=== PATIENT | female | born 1945 | race Caucasian/White ===

== ENCOUNTER 2020-04-04 11:23 | Outpatient (CLI) | payer MEDICARE ==
--- NOTE | 2020-04-04 13:35 | BD ---
BONE DENSITOMETRY USING DEXA: Date: 04/04/2020 HISTORY: Postmenopausal screening for osteoporosis. FINDINGS: Lumbar Spine: BMD (g/cm2) L1 0.978 T-Score: -0.1 Z-Score: 2.0 L2 1.005 T-Score: -0.2 Z-Score: 2.2 L3 1.165 T-Score: 0.7 Z-Score: 3.3 L4 1.225 T-Score: 1.5 Z-Score: 4.1 L1-L4 1.105 T-Score: 0.5 Z-Score: 2.9 Femoral Neck: 0.739 T-Score: -1.0 Z-Score: 1.1 Total Femur: 0.868 T-Score: -0.6 Z-Score: 1.2 IMPRESSION: Normal bone mineral density. POS: AH
== END 2020-04-04 11:24 | disposition home or self-care (01) ==
LOC: BICMAMMO 11:23
PROVIDERS: ATTEND Internal Medicine
DX: Z13.820 Encounter for screening for osteoporosis (principal)
CPT/HCPCS: 77080

== ENCOUNTER 2020-12-19 21:51 | Emergency (ER) | payer MEDICARE ==
[2020-12-20] MEDS ORDERED: Rabies Vaccine Human 2.5 UNITS VIAL IM ONE (02:00)
== END 2020-12-20 03:27 | disposition home or self-care (01) ==
LOC: ERS 21:51
DX: S61.451A Open bite of right hand, initial encounter (principal); Z23 Encounter for immunization; I10 Essential (primary) hypertension; E78.5 Hyperlipidemia, unspecified; W55.01XA Bitten by cat, initial encounter
CPT/HCPCS: 90376; 90471; 90675; 96372

== ENCOUNTER → 2020-12-23 | Day surgery (SDC) | payer MEDICARE ==
[~2020-12-23] MED LIST: Rabies Vaccine Human 2.5 UNITS VIAL IM ONE
== END ==
LOC: ER/OP 13:07
DX: Z23 Encounter for immunization (principal); Z88.2 Allergy status to sulfonamides
CPT/HCPCS: 90675

== ENCOUNTER → 2020-12-27 | Emergency (ER) | payer MEDICARE | LOC: ER/OP 13:59 | DX: Z23 Encounter for immunization (principal) | CPT/HCPCS: 90471; 90675 ==

== ENCOUNTER → 2021-01-03 | Day surgery (SDC) | payer MEDICARE | LOC: ER/OP 09:45 | DX: Z23 Encounter for immunization (principal); Z88.1 Allergy status to other antibiotic agents; Z88.2 Allergy status to sulfonamides | CPT/HCPCS: 90471; 90675 ==

== ENCOUNTER → 2021-01-17 | Day surgery (SDC) | payer MEDICARE | LOC: ER/OP 15:30 | PROVIDERS: ATTEND Emergency Medicine | DX: Z23 Encounter for immunization (principal); Z88.1 Allergy status to other antibiotic agents; Z88.2 Allergy status to sulfonamides | CPT/HCPCS: 90471; 90675 ==

== ENCOUNTER 2022-02-06 10:29 | Outpatient (CLI) | payer OTHER | END 2022-02-06 10:30 | disposition home or self-care (01) | LOC: BICULT 10:29 | PROVIDERS: ATTEND Urology | DX: N39.0 Urinary tract infection, site not specified (principal); N81.11 Cystocele, midline | CPT/HCPCS: 76770 ==

== ENCOUNTER 2022-03-26 09:58 | Outpatient (CLI) | payer OTHER | END 2022-03-26 09:59 | disposition home or self-care (01) | LOC: BICMAMMO 09:58 | PROVIDERS: ATTEND Internal Medicine | DX: Z12.31 Encounter for screening mammogram for malignant neoplasm of breast (principal); Z80.3 Family history of malignant neoplasm of breast | CPT/HCPCS: 77063; 77067 ==

== ENCOUNTER 2023-12-17 14:52 | Outpatient (CLI) | payer OTHER | END 2023-12-17 14:53 | disposition home or self-care (01) | LOC: BICMAMMO 14:52 | PROVIDERS: ATTEND Internal Medicine | DX: Z12.31 Encounter for screening mammogram for malignant neoplasm of breast (principal); Z13.820 Encounter for screening for osteoporosis; M85.851 Other specified disorders of bone density and structure, right thigh; Z78.0 Asymptomatic menopausal state; Z80.3 Family history of malignant neoplasm of breast | CPT/HCPCS: 77063; 77067; 77080 ==

== ENCOUNTER 2025-05-10 13:10 | Outpatient (CLI) | payer OTHER | END 2025-05-10 13:11 | disposition home or self-care (01) | LOC: CT 13:10 | PROVIDERS: ATTEND Internal Medicine Critical Care Medicine | DX: R91.1 Solitary pulmonary nodule (principal) | CPT/HCPCS: 71250 ==